=== PATIENT | female | born 1995 | race Caucasian/White ===

== ENCOUNTER 2016-10-09 08:18 | Inpatient (IN) | payer MEDICAID, OTHER ==
[2016-10-09] VITALS (19 sets, daily range): BP systolic 110–129; BP diastolic 58–74; PULSE 90–110; RESP 12–22; TEMP 98.7; Ht 162.6 cm; Wt 75.0 kg
[~2016-10-09] VITALS: Ht 162.6 cm; Wt 75.0 kg
[~2016-10-09 08:18] MED LIST: BUPIVACAINE 0.25%/EPI (SDV) 30 ML INJ INJ ONE; CIPR500T4 PO; DICY20TA59 PO; HYDR-902 PO; LIDOCAINE 1% (MPF) 30 ML INJ INJ ONE; ONDA4TAB14 PO
[2016-10-09] MEDS ORDERED: ONDANSETRON 4 MG INJ IV STA (08:30)
[2016-10-09] MEDS ORDERED: morphine 4 MG/ML VIAL IV STA (08:30)
[2016-10-09] MEDS ORDERED: SOD CHLORIDE 0.9% 1,000 ML IV STA (08:30)
--- NOTE | 2016-10-09 09:08 | RADRPT ---
PROCEDURE: US Abdomen (right upper quadrant). CLINICAL INDICATION: Abdominal pain. TECHNIQUE: Multiple real-time longitudinal and transverse images of the right upper quadrant of th e abdomen were acquired utilizing a curved array transducer. Images were reviewed on a high-resoluti on PACS workstation. COMPARISON: Ultrasound from 04/14/2016 FINDINGS: The liver is normal in size and echogenicity without focal mass or intrahepatic biliary dilatation. Multiple stones are seen within the gallbladder measuring up to 1.7 cm in diameter. There is no def inite pericholecystic fluid or gallbladder wall thickening demonstrated. The beef ribber reports a p ositive sonographic Wagner's sign. No intra or extrahepatic biliary dilatation is seen. The commo n bile duct measures 2.6 mm in maximal dimension. The visualized portions of the pancreas are unrem arkable with obscuration of the tail of the pancreas. No free fluid is identified. The right kidney measures 11.0 cm in length. There is normal echogenicity within the right kidney. There is no perinephric fluid collection. No hydronephrosis, mass, or calculus is seen. IMPRESSION: Cholelithiasis with reportedly positive sonographic Wagner's sign and no additional sonographic evid ence of acute inflammation demonstrated. The findings are equivocal for acute calculus cholecystiti s. If there is further concern, consider HIDA scan. RPTAT: EE .Benji Vogt MD, MD Date Time Electronically viewed and signed by .Benji Vogt MD, MD on 10/09/2016 09:08 .A/
--- NOTE | 2016-10-09 09:10 | ERD ---
ER Documentation Chief Complaint Date/Time DATE: 10/09/16 TIME: 09:05 Chief Complaint APIGASTRIC PAIN,NAUSEA STARTED 3AM HPI This is a 21-year-old female, with relevant medical history of gallstones, presenting to the emergency department for epigastric pain and nausea 2 days. Patient states pain started yesterday and has worsened today. Patient has a history of gallstones and states this pain feels similar to when she had gallstones. No vomiting or diarrhea. No lower abdominal pain. No dysuria or hematuria. No urinary frequency or urgency. No black or tarry stools. No constipation. Patient states she does feel short of breath at times. No chest pain or difficulty breathing. No heart palpitations. ROS All systems reviewed and are negative except as per history of present illness. Medications Home Meds Active Scripts Ondansetron (Ondansetron Odt) 4 Mg Tab.rapdis, 4 MG PO Q6H Y for NAUSEA AND/OR VOMITING, #10 TAB Prov:SHAJI NERI S. 06/27/16 Hydrocodone/Acetaminophen ([place] 10-325 Tablet) 1 Each Tablet, 1 TAB PO Q6H Y for PAIN, #20 TAB Prov:SHAJI NERI S. 06/27/16 Ciprofloxacin Hcl* (Ciprofloxacin Hcl*) 500 Mg Tablet, 500 MG PO BID for 7 Days , TAB Prov:SRI COTTOSTMICHAELS A. DO 04/14/16 Hydrocodone/Acetaminophen ([place] 10-325 Tablet) 1 Each Tablet, 1 TAB PO Q6H Y for PAIN, #20 TAB Prov:SRI COTTOSTMICHAELS A. DO 04/14/16 Dicyclomine Hcl* (Bentyl*) 20 Mg Tablet, 20 MG PO QID, #60 TAB Prov:SRI COTTOSTOLOS A. DO 04/14/16 Allergies Allergies: Coded Allergies: No Known Allergies (Unverified Allergy, Unknown, 04/14/16) PMhx/Soc History of Surgery: Yes ( ) Anesthesia Reaction: No Hx Neurological Disorder: No Hx Respiratory Disorders: No Hx Cardiac Disorders: No Hx Psychiatric Problems: No Hx Miscellaneous Medical Probl: Yes (gallstones dx'd 06/2015) Hx Alcohol Use: No Hx Substance Use: No Hx Tobacco Use: No Physical Exam Vitals Vital Signs Date Time Temp Pulse Resp B/P Pulse Ox O2 Delivery O2 Flow Rate FiO2 10/09/16 11:28 98.7 97 20 120/70 100 Room Air 10/09/16 10:37 99.2 92 20 100/70 100 Room Air 10/09/16 08:20 98.8 88 18 129/64 98 Physical Exam Const: Alert, nontoxic-appearing Head: Atraumatic Eyes: Normal Conjunctiva ENT: Normal External Ears, Nose and Mouth. Neck: Full range of motion..~ No meningismus. Resp: Clear to auscultation bilaterally. No wheezing, rhonchi or crackles. Cardio: Regular rate and rhythm, no murmurs Abd: Soft, non distended. Normal bowel sounds, generalized tenderness to palpation. Skin: No petechiae or rashes Back: No midline or flank tenderness Ext: No cyanosis, or edema Neur: Awake and alert Psych: Normal Mood and Affect Result Diagram: 10/09/16 0935 10/09/16 0935 Results 24 hrs Laboratory Tests Test 10/09/16 09:15 10/09/16 09:35 Bedside Urine pH (LAB) 7.0 Bedside Urine Protein (LAB) 1+ Bedside Urine Glucose (UA) Negative Bedside Urine Ketones (LAB) Negative Bedside Urine Blood Trace-intact Bedside Urine Nitrite (LAB) Negative Bedside Urine Leukocyte Esterase (L Negative White Blood Count 16.110^3/ul Red Blood Count 4.5610^6/ul Hemoglobin 13.0g/dl Hematocrit 39.9% Mean Corpuscular Volume 87.5fl Mean Corpuscular Hemoglobin 28.5pg Mean Corpuscular Hemoglobin Concent 32.6g/dl Red Cell Distribution Width 13.4% Platelet Count 34743^3/UL Mean Platelet Volume 9.5fl Neutrophils % 87.3% Lymphocytes % 6.8% Monocytes % 5.2% Eosinophils % 0.1% Basophils % 0.3% Nucleated Red Blood Cells % 0.0/100WBC Neutrophils # 14.010^3/ul Lymphocytes # 1.110^3/ul Monocytes # 0.810^3/ul Eosinophils # 0.010^3/ul Basophils # 0.110^3/ul Nucleated Red Blood Cells # 0.010^3/ul Sodium Level 141mmol/L Potassium Level 3.4mmol/L Chloride Level 104mmol/L Carbon Dioxide Level 27mmol/L Anion Gap 13 Blood Urea Nitrogen 14mg/dl Creatinine 0.57mg/dl Glucose Level 109mg/dl Calcium Level 8.5mg/dl Total Bilirubin 0.3mg/dl Direct Bilirubin 0.00mg/dl Indirect Bilirubin 0.3mg/dl Aspartate Amino Transf (AST/SGOT) 26IU/L Alanine Aminotransferase (ALT/SGPT) 29IU/L Alkaline Phosphatase 91IU/L Troponin I < 0.012ng/ml Total Protein 7.5g/dl Albumin 4.2g/dl Globulin 3.30g/dl Albumin/Globulin Ratio 1.27 Lipase 49U/L Current Medications Medications (Trade) Dose Ordered Sig/Shereen Route PRN Reason Start Time Stop Time Status Last Admin Dose Admin Sodium Chloride (NS) 1,000 ml @ 1,000 mls/hr Q1H STAT IV 10/09/16 08:30 10/09/16 10:53 DC 10/09/16 09:11 Morphine Sulfate (morphine) 4 mg ONCE STAT IV 10/09/16 08:30 10/09/16 08:33 DC 10/09/16 09:10 Ondansetron HCl 4 mg 4 mg ONCE STAT IV 10/09/16 08:30 10/09/16 08:33 DC 10/09/16 09:10 Ampicillin Sodium/ Sulbactam Sodium (Unasyn 3gm/NS (Pmx)) 100 ml @ 100 mls/hr ONCE ONCE IVPB 10/09/16 10:30 10/09/16 11:29 DC 10/09/16 10:32 Ondansetron HCl (Zofran Inj) 4 mg BRIDGE ORDER PRN IV NAUSEA AND/OR VOMITING 10/09/16 11:00 10/10/16 10:59 Acetaminophen (Tylenol Tab) 650 mg ER BRIDGE PRN PO MILD PAIN/FEVER 10/09/16 11:00 10/10/16 10:59 Procedures/MDM ED COURSE: The patient was stable throughout ED course. I kept the patient and/or family informed of laboratory and diagnostic imaging results throughout the ED course. IV access obtained per staff physician. Patient given morphine, Zofran and Pepcid while in the ED. Laboratory CBC shows WBC 16.1 CMP no significant electrolyte imbalance Lipase 49 Urine dip 1+ protein, trace blood Urine negative troponin <0.012 Imaging Patient: ROBB CAMARA: 1995 Age: 21 Sex: F MR #: [id number] DOS: 10/09/16829 Ordering MD: NASEEM CURTIS NP Location: [facility] Room/Bed: PROCEDURE: XR Chest. CLINICAL INDICATION: Abdominal pain. TECHNIQUE: Single frontal chest x-ray. COMPARISON: 07/23/2015 FINDINGS: The lungs are clear. No focal opacification is seen. No pneumothorax or pleural effusion is seen. The cardiomediastinal silhouette is unremarkable. The osseous structures are grossly unremarkable. IMPRESSION: No evidence of acute cardiopulmonary disease. Patient: ROBB CAMARA : 1995 Age: 21 Sex: F MR #: [id number] DOS: 10/09/1630 Ordering MD: NASEEM CURTIS NP Location: [facility] Room/Bed: PROCEDURE: US Abdomen (right upper quadrant). CLINICAL INDICATION: Abdominal pain. TECHNIQUE: Multiple real-time longitudinal and transverse images of the right upper quadrant of the abdomen were acquired utilizing a curved array transducer. Images were reviewed on a high-resolution PACS workstation. COMPARISON: Ultrasound from 04/14/2016 FINDINGS: The liver is normal in size and echogenicity without focal mass or intrahepatic biliary dilatation. Multiple stones are seen within the gallbladder measuring up to 1.7 cm in diameter. There is no definite pericholecystic fluid or gallbladder wall thickening demonstrated. The highway technician reports a positive sonographic Wagner's sign. No intra or extrahepatic biliary dilatation is seen. The common bile duct measures 2.6 mm in maximal dimension. The visualized portions of the pancreas are unremarkable with obscuration of the tail of the pancreas. No free fluid is identified. The right kidney measures 11.0 cm in length. There is normal echogenicity within the right kidney. There is no perinephric fluid collection. No hydronephrosis, mass, or calculus is seen. IMPRESSION: Cholelithiasis with reportedly positive sonographic Wagner's sign and no additional sonographic evidence of acute inflammation demonstrated. The findings are equivocal for acute calculus cholecystitis. If there is further concern, consider HIDA scan. MDM:21-year-old female presents emergency department for epigastric pain and nausea 2 days. No vomiting or diarrhea. No constipation. No fevers or chills. Remains afebrile throughout ED visit. Patient given morphine, Zofran and Pepcid. US gallbladder reviewed by radiologist as acute cholecystitis. Discussed findings with Dr. Jordan and patient will be transferred to higher level of care. Patient remains calm and comfortable. Departure Diagnosis: Primary Impression: Cholecystitis Condition: NASEEM Jerry NP Oct 09, 2016 09:10
--- NOTE | 2016-10-09 09:15 | RADRPT ---
PROCEDURE: XR Chest. CLINICAL INDICATION: Abdominal pain. TECHNIQUE: Single frontal chest x-ray. COMPARISON: 07/23/2015 FINDINGS: The lungs are clear. No focal opacification is seen. No pneumothorax or pleural effusion is seen. The cardiomediastinal silhouette is unremarkable. The osseous structures are grossly unremarkable. IMPRESSION: No evidence of acute cardiopulmonary disease. RPTAT: EE .Benji Vogt MD, MD Date Time Electronically viewed and signed by .Benji Vogt MD, on 10/09/2016 09:14 .A/
[2016-10-09 09:16] LABS: URINE BLOOD (Dip) POC Trace-intact (NEGATIVE)
[2016-10-09 09:41] LABS: ADD SCAN DIFF NO
[2016-10-09 09:43] LABS: BASOPHIL # 0.1 10^3/ul (0.0-0.1); BASOPHILS % 0.3 % (0.0-2.0); EOSINOPHILS % 0.1 % (0.0-7.0); HEMATOCRIT 39.9 % (37.0-47.0); LYMPHOCYTES # 1.1 10^3/ul (0.8-2.9); LYMPHOCYTES % 6.8 % (18.0-55.0); MEAN CORPUSCULAR HEMOGLOBIN 28.5 pg (29.0-33.0); MEAN CORPUSCULAR HGB CONC 32.6 g/dl (32.0-37.0); MEAN CORPUSCULAR VOLUME 87.5 fl (72.0-104.0); MEAN PLATELET VOLUME 9.5 fl (7.4-10.4); MONOCYTE # 0.8 10^3/ul (0.3-0.9); MONOCYTES % 5.2 % (0.0-13.0); NEUTROPHILS % 87.3 % (30.0-74.0); PLATELET COUNT 231 10^3/UL (140-415); RED BLOOD COUNT 4.56 10^6/ul (4.20-5.40); RED CELL DISTRIBUTION WIDTH 13.4 % (11.5-14.5); WHITE BLOOD COUNT 16.1 10^3/ul (4.8-10.8)
[2016-10-09] MEDS ORDERED: AMPICILLIN/SULB 3 GM/NS (PMX) 100 ML IVPB ONE (10:30)
[2016-10-09 10:41] LABS: ALBUMIN 4.2 g/dl (3.3-4.9)
[2016-10-09 10:42] LABS: POTASSIUM 3.4 mmol/L (3.5-5.1)
[2016-10-09 10:43] LABS: CREATININE 0.57 mg/dl (0.44-1.00)
[2016-10-09 10:44] LABS: ALBUMIN/GLOBULIN RATIO 1.27; BILIRUBIN,INDIRECT 0.3 mg/dl (0-1.1); BILIRUBIN,TOTAL 0.3 mg/dl (0.2-1.3); CALCIUM 8.5 mg/dl (8.4-10.2); TOTAL PROTEIN 7.5 g/dl (6.1-8.1)
--- NOTE | 2016-10-09 10:53 | QN ---
Documentation Comment My independent concise history is right upper quadrant abdominal pain. My pertinent physical exam findings are right upper quadrant pain with palpation with guarding. The plan is admission to Dr. Terrazas from the panel team as the patient has [employer] insurance. I also spoke with Dr. Lyons who is a surgeon on-call who will see the patient in consultation. The patient will be kept n.p.o. Unasyn was given empirically.. ANTONY BRITO MD Oct 09, 2016 10:53
[2016-10-09] MEDS ORDERED: ACETAMINOPHEN 325 MG TAB PO PRN ×3 (11:00→19:00)
[2016-10-09] MEDS ORDERED: ONDANSETRON 4 MG INJ IV PRN ×3 (11:00→19:00)
[2016-10-09] MEDS ORDERED: SOD CHLORIDE 0.9% 1,000 ML IV SCH (12:16)
[2016-10-09] MEDS ORDERED: HYDROCODONE/APAP (5/325) TAB PO PRN ×2 (12:30→19:00)
[2016-10-09] MEDS ORDERED: DOCUSATE SODIUM 100 MG CAP PO PRN (12:30)
[2016-10-09] MEDS ORDERED: MAGNESIUM HYDROXIDE 30ML CUP PO PRN (12:30)
[2016-10-09] MEDS ORDERED: ALBUTEROL/IPRATROPIUM (NEB) 3 ML AMP HHN PRN (12:30)
[2016-10-09] MEDS ORDERED: morphine 2 MG INJ IV PRN ×2 (12:30→19:00)
[2016-10-09] MEDS ORDERED: NA PHOSPHATE/BIPHOS 133 ML ENEMA PR PRN (12:30)
[2016-10-09] MEDS ORDERED: LORAZEPAM 2 MG INJ IV PRN (12:30)
[2016-10-09] MEDS ORDERED: NITROGLYCERIN (SL) 0.4 MG TAB SL PRN (12:30)
[2016-10-09] MEDS ORDERED: hydrALAzine 20 MG INJ IV PRN (12:30)
[2016-10-09] MEDS ORDERED: NACL 0.9% 3 ML SYG IV SCH (12:30)
--- NOTE | 2016-10-09 13:25 | HP ---
DATE OF ADMISSION: 10/09/2016 21-year-old female. CHIEF COMPLAINT: Abdominal pain. HISTORY OF PRESENT ILLNESS: A 21-year-old female with a prior history of gallstones. She has been having abdominal pain that began earlier this morning around 3:00 a.m. She also had nausea and vomit ing symptoms, nonbilious, nonbloody, some subjective fevers at home, also some mild shortness of micky ath. She says she has had off and on pain for the last 2 years though it became worse this morning. No diarrhea or constipation. No dysuria, hematuria or frequency. No upper or lower GI bleeding. No significant chest pain. When she came into the ER today, she had a gallbladder ultrasound that showed cholelithiasis with signs of acute calculus cholecystitis and the general surgery team was ca lled by the ER staff to come evaluate the patient, which is still pending. PAST MEDICAL HISTORY: As stated above. ALLERGIES: NO KNOWN DRUG ALLERGIES. MEDICATIONS AT HOME: 1. Cipro 500 mg b.i.d. 2. Bentyl 20 mg q.i.d. 3. [place] 10/325 q.6h. p.r.n. 4. Zofran 4 mg p.o. q.6h. p.r.n. PAST SURGICAL HISTORY: in the past. SOCIAL HISTORY: Negative for smoking, drinking, or IV drug abuse. FAMILY HISTORY: Noncontributory. PHYSICAL EXAMINATION: VITAL SIGNS: T-max 99.2, pulse of 88 to 97, respirations 18 to 20, blood pressure 100-129 systolic over 70 to 64 diastolic, saturating at 100% on room air. GENERAL: The patient is lying in bed, answering questions, in mild distress but alert. HEENT: Pupils equal, round, react to light. Extraocular muscles intact. NECK: Supple, no thyromegaly. LUNGS: Clear to auscultation bilaterally. CARDIOVASCULAR: S1, S2 heard. No rubs or gallops. ABDOMEN: Mild tenderness to palpation right upper quadrant area, but otherwise soft, nondistended. Normal bowel sounds. No rebound or guarding. MUSCULOSKELETAL: No lower extremity edema bilaterally. NEUROLOGIC: No focal deficits. LABORATORIES: WBC 16.1, hemoglobin 13, hematocrit 39.9, platelets 231. Comprehensive metabolic christianson el is normal except potassium 3.4. Troponin is negative x1. Lipase 49. We mentioned the gallbladd er ultrasound results above. IMAGING: Chest x-ray showed no acute cardiopulmonary disease. ASSESSMENT AND PLAN: A 21-year-old female coming in with abdominal pain, nausea, vomiting, signs of acute cholecystitis. 1. Abdominal pain, nausea, vomiting secondary to acute cholecystitis. Admit the patient to med/[place] g floor, keep her n.p.o., give her IV fluids, antiemetic medicines, get general surgery consult. Th e patient will most likely benefit from a laparoscopic cholecystectomy. Also check labs, TSH, A1c, lipid panel and put her on IV fluids as well. Put her on antibiotics as well, given leukocytosis. 2. Gastrointestinal prophylaxis, PPI. 3. Deep venous thrombosis prophylaxis, heparin subQ. Dictated By: SANTOSH MAHONEY/GABRIELLA Conf#: [id number] DID#: [id number]
[2016-10-09 14:18] LABS: INR 0.99; PARTIAL THROMBOPLASTIN TIME 34.9 Sec (25.0-35.0); PROTIME 13.1 Sec (12.2-14.2)
[2016-10-09] MEDS: PIPER-TAZO 3.375 GM IV (PMX) 100 ML IVPB SCH ×2 (17:23→23:55)
[2016-10-09] MEDS ORDERED: LIDOCAINE 1% (STERILE-PAK) 30 ML INJ ONE (18:44)
[2016-10-09] MEDS ORDERED: BUPIVACAINE 0.25%/EPI (SDV) 30 ML INJ ONE (18:44)
[2016-10-09] MEDS: D5W-0.45 NACL + KCL 20 MEQ 1,000 ML IV SCH (18:45)
[2016-10-09] MEDS ORDERED: PROPOFOL 20 ML ONE (19:07)
[2016-10-09] MEDS ORDERED: SUCCINYLCHOLINE CHLORIDE 100 MG/5 ML SYG IV ONE (19:07)
[2016-10-09] MEDS ORDERED: ROCURONIUM 50 MG INJ ONE (19:07)
[2016-10-09] MEDS ORDERED: MIDAZOLAM 1 MG/ML 2 ML INJ ONE (19:08)
[2016-10-09] MEDS ORDERED: ONDANSETRON 4 MG INJ ONE (19:22)
[2016-10-09] MEDS ORDERED: FAMOTIDINE 20 MG INJ ONE (19:22)
[2016-10-09] MEDS ORDERED: DEXAMETHASONE 4 MG/ML 1 ML INJ ONE (19:23)
[2016-10-09] MEDS ORDERED: ROPIVACAINE 0.5 % 30 ML VIAL ONE (19:36)
--- NOTE | 2016-10-09 19:37 | CONS ---
DATE OF ADMISSION: 10/09/2016 DATE OF CONSULTATION: 10/09/2016 HISTORY OF PRESENT ILLNESS: Ms. Thurman is a 21-year-old female with recurrent biliary colic. She has had approximately 6 episodes of biliary colic ____ and has been hospitalized multiple times. L ast night, she developed epigastric and right upper quadrant pain with nausea and vomiting. She pre sented to the ER, where workup was consistent with acute cholecystitis. I was called for consultati on. PAST MEDICAL HISTORY: Noncontributory. ALLERGIES: NONE. MEDICATIONS: 1. Cipro. 2. Bentyl. 3. [place]. 4. Zofran. PAST SURGICAL HISTORY: . SOCIAL HISTORY: Denies smoking, drug use or drinking. PHYSICAL EXAMINATION: GENERAL: She is a well-nourished, well-developed female in no apparent distress. VITAL SIGNS: She is currently afebrile. Vital signs stable. CHEST: Clear to auscultation bilaterally. HEART: Regular rhythm. ABDOMEN: Soft, nondistended with some right upper quadrant tenderness. LABORATORY DATA: White count of 16, hematocrit of 40, platelets of 231. Sodium 141, potassium 3.4, chloride 104, CO2 27, BUN and creatinine 14 and 0.6 and glucose of 109. Her LFTs are within normal limits. IMAGING: Her ultrasound revealed cholelithiasis with reportedly positive sonographic Wagner sign bu t no pericholecystic fluid or gallbladder wall thickening. ASSESSMENT AND PLAN: Ms. Thurman is a 21-year-old female with likely acute cholecystitis or possib le biliary colic. I discussed proceeding with surgery on this admission versus outpatient. The pat ient wished to proceed, and we discussed laparoscopic, possible open cholecystectomy, possible chola ngiogram. All benefits, risks, alternatives were discussed in detail, all questions answered. The patient elects to proceed. Dictated By: ALEJANDRINA MYERS/GABRIELLA Conf#: [id number] DID#: [id number]
[2016-10-09] MEDS ORDERED: GLYCOPYRROLATE 0.4 MG INJ ONE (19:42)
[2016-10-09] MEDS ORDERED: NEOSTIGMINE 3 MG/3 ML SYRINGE ONE (19:42)
[2016-10-09] MEDS ORDERED: NALOXONE (0.4 MG/ML) INJ ONE (19:56)
[2016-10-09] MEDS ORDERED: PROCHLORPERAZINE 10 MG INJ IV PRN (20:00)
[2016-10-09] MEDS ORDERED: MEPERIDINE 25 MG INJ IV PRN (20:00)
[2016-10-09] MEDS ORDERED: HYDROmorphONE (0.2 MG/ML) 10ML SYG IV PRN ×2 (20:00)
--- NOTE | 2016-10-09 20:38 | OPR ---
DATE OF OPERATION: 10/09/2016 PREOPERATIVE DIAGNOSIS: Cholecystitis, acute. POSTOPERATIVE DIAGNOSIS: Biliary colic. PROCEDURE: Laparoscopic cholecystectomy. SURGEON: Alejandrina Lyons MD DINING ROOM CAPTAIN: None. ANESTHESIA: General endotracheal. ANESTHESIOLOGIST: MD Kimberly ESTIMATED BLOOD LOSS: Minimal. COMPLICATIONS: None. SPECIMENS: Gallbladder with stones. FINDINGS: Distended gallbladder. INDICATIONS: Ms. Thurman is a 21-year-old female who has had multiple recurrent attacks of biliary colic. She presented to the ER today with right upper quadrant tenderness, a white count of 16 and ultrasound consistent with acute cholecystitis. I discussed proceeding with a laparoscopic, possible open cholecystectomy on this admission versus an outpatient. The patient wished to proceed with surgery on this admission. I discussed laparoscopic, possible open cholecystectomy, possible cholangiogram with her and her . All benefits, risks, alternatives were discussed in detail. All questions answered. The patient elected to proceed. DESCRIPTION OF PROCEDURE: The patient was brought to the operating room and placed supine on the table. After preoperative antibiotics and SCDs were placed , the patient was intubated and the abdomen was prepped and draped in sterile fashion. All incisions were infiltrated with 1% lidocaine with epinephrine and 0.5% Marcaine prior to incision. An 11 mm incision was made in the umbilicus using a 5 mm laparoscope-containing trocar. The abdomen was entered under direct vision and insufflated 50 mmHg of CO2. The following trocars were then placed under direct vision: Right lower quadrant 5 mm, right upper quadrant 5 mm and subxiphoid 5 mm. The 5 mm umbilical trocar was exchanged for an 11 mm under direct vision. I then found the gallbladder was distended but was able to be grasped with the fundus and retracted over the liver. There were some adhesions of omentum to the gallbladder which were taken down and I was thus able to expose Caesar's pouch. Caesar's pouch was grasped and retracted laterally. I scored the peritoneum underneath Caesar pouch medially and laterally and I was able to dissect out and skeletonize the cystic duct and artery. I then had my critical view of safety where I saw my liver edge, the duct and the artery with no intervening structures. The duct and artery were both clipped twice proximally and once distally individually and then divided. The gallbladder was then removed from the gallbladder fossa with electrocautery , placed in an EndoCatch bag and removed from the 12 mm trocar site. I irrigated out the right upper quadrant and gallbladder fossa. There was some slight oozing from the gallbladder fossa, which was controlled with cautery. At this point, I visualized my gallbladder fossa was hemostatic. I then desufflated the abdomen and removed all trocars. The fascia of the 12 mm trocar site was closed with 0 Vicryl. Skin incisions were closed with 4-0 Monocryl, Mastisol, Steri-Strips, 2 x 2 gauze and Tegaderm was placed over the umbilical incision only. The patient tolerated procedure well, was extubated in the OR and transferred to recovery room in stable condition. Dictated By: ALEJANDRINA MYERS/GABRIELLA Conf#: [id number] DID#: [id number] MTDD
[2016-10-09] MEDS ORDERED: HEPARIN 5,000 UNIT/0.5 ML SYG SC SCH (21:00)
[2016-10-09] MEDS: KETOROLAC 30 MG INJ IV SCH (23:55)
[2016-10-10] VITALS: BP 112/61; RESP 16
[2016-10-10] MEDS ORDERED: AMPICILLIN/SULB 3 GM/NS (PMX) 100 ML IVPB SCH
[2016-10-10 01:01] VITALS: BP 107/59; RESP 16
[2016-10-10] MEDS: PIPER-TAZO 3.375 GM IV (PMX) 100 ML IVPB SCH ×2 (05:43→11:56)
[2016-10-10] MEDS: D5W-0.45 NACL + KCL 20 MEQ 1,000 ML IV SCH ×2 (05:43→14:45)
[2016-10-10] MEDS: KETOROLAC 30 MG INJ IV SCH ×2 (05:44→11:55)
[2016-10-10 05:45] LABS: CHOL/HDL RATIO 2.4 RATIO
[2016-10-10] MEDS ORDERED: PANTOPRAZOLE 40 MG INJ IV SCH (06:00)
[2016-10-10 06:15] LABS: THYROID STIMULATING HORMONE 0.464 MIU/L (0.465-4.680)
[2016-10-10 06:53] LABS: ADD SCAN DIFF NO; BASOPHILS % 0.1 % (0.0-2.0); HEMOGLOBIN 12.2 g/dl (12.0-16.0); LYMPHOCYTES # 1.1 10^3/ul (0.8-2.9); LYMPHOCYTES % 9.4 % (18.0-55.0); MEAN CORPUSCULAR HEMOGLOBIN 28.7 pg (29.0-33.0); MEAN CORPUSCULAR VOLUME 87.1 fl (72.0-104.0); MEAN PLATELET VOLUME 10.9 fl (7.4-10.4); MONOCYTE # 0.4 10^3/ul (0.3-0.9); MONOCYTES % 3.1 % (0.0-13.0); NEUTROPHIL # 10.2 10^3/ul (1.6-7.5); NEUTROPHILS % 87.1 % (30.0-74.0); PLATELET COUNT 250 10^3/UL (140-415); RED BLOOD COUNT 4.25 10^6/ul (4.20-5.40); RED CELL DISTRIBUTION WIDTH 13.5 % (11.5-14.5); WHITE BLOOD COUNT 11.8 10^3/ul (4.8-10.8)
[2016-10-10] MEDS ORDERED: ENOXAPARIN 40 MG/0.4 ML SYG SC SCH ×3 (07:00→09:00)
[2016-10-10 07:01] LABS: POTASSIUM 3.8 mmol/L (3.5-5.1)
[2016-10-10 07:04] LABS: CREATININE 0.49 mg/dl (0.44-1.00)
[2016-10-10 07:05] LABS: CALCIUM 8.4 mg/dl (8.4-10.2); PHOSPHORUS 1.9 mg/dl (2.5-4.9)
[2016-10-10 08:00] VITALS: BP 107/57; RESP 18
--- NOTE | 2016-10-10 11:18 | PN ---
Date/Time of Note Date/Time of Note DATE: 10/10/16 TIME: 11:15 Assessment/Plan VTE Prophylaxis VTE Prophylaxis Intervention: ambulation Lines/Catheters IV [facility] Peripheral IV Urinary Cath still in place: No Assessment/Plan Assessment/Plan 1. Acute cholecystitis s/p lap fidelina 10/09/16 2. Hypophosphatemia PLAN: continue routine post op care d/c once cleared by surgery replace phos. Subjective 24 Hr Interval Summary Free Text/Dictation feels better Constitutional: no complaints Exam/Review of Systems Vital Signs Vitals Vital Signs Date Time Temp Pulse Resp B/P Pulse Ox O2 Delivery O2 Flow Rate FiO2 10/10/16 08:00 98.9 101 18 107/57 98 10/09/16 21:00 Room Air Intake and Output 10/09/16 10/09/16 10/10/16 15:00 23:00 07:00 Intake Total 1100 ml 600 ml 920 ml Output Total 20 ml 1000 ml Balance 1100 ml 580 ml -80 ml Exam Constitutional: alert, oriented Head: normocephalic Eyes: PERRL ENMT: mucosa pink and moist Respiratory: clear to auscultation Cardiovascular: regular rate and rhythm Gastrointestinal: bowel sounds, soft Extremities: No edema Neurological: nl mental status Results Result Diagram: 10/10/16 0500 10/10/16 0500 Results 24 hrs Laboratory Tests Test 10/09/16 13:45 10/10/16 04:44 10/10/16 05:00 Prothrombin Time 13.1 Prothrombin Time Ratio 1.0 INR International Normalized Ratio 0.99 Activated Partial Thromboplast Time 34.9 Free Thyroxine 1.11 Hemoglobin A1c 5.0 Triglycerides Level 52 Cholesterol Level 147 LDL Cholesterol, Calculated 77 HDL Cholesterol 60 Cholesterol/HDL Ratio 2.4 Thyroid Stimulating Hormone (TSH) 0.464 L White Blood Count 11.8 #H Red Blood Count 4.25 Hemoglobin 12.2 Hematocrit 37.0 Mean Corpuscular Volume 87.1 Mean Corpuscular Hemoglobin 28.7 L Mean Corpuscular Hemoglobin Concent 33.0 Red Cell Distribution Width 13.5 Platelet Count 250 Mean Platelet Volume 10.9 H Neutrophils % 87.1 H Lymphocytes % 9.4 L Monocytes % 3.1 Eosinophils % 0.0 Basophils % 0.1 Nucleated Red Blood Cells % 0.0 Neutrophils # 10.2 H Lymphocytes # 1.1 Monocytes # 0.4 Eosinophils # 0.0 Basophils # 0.0 Nucleated Red Blood Cells # 0.0 Sodium Level 137 Potassium Level 3.8 Chloride Level 108 Carbon Dioxide Level 23 Anion Gap 10 Blood Urea Nitrogen 6 L Creatinine 0.49 Glucose Level 142 Calcium Level 8.4 Phosphorus Level 1.9 L Magnesium Level 2.0 Medications Medications Current Medications Docusate Sodium (Colace) 100 mg Q12H PRN PO CONSTIPATION; Start 10/09/16 at 12: 30 Magnesium Hydroxide (Milk Of Mag) 30 ml DAILY PRN PO CONSTIPATION; Start at 12:30 Sodium Biphosphate/ Sodium Phosphate (Fleet Enema) 133 ml DAILY PRN OK CONSTIPATION; Start 10/09/16 at 12:30 Pantoprazole (Protonix Iv) 40 mg DAILY@06 IV Last administered on 10/10/16 05: 44; Admin Dose 40 MG; Start 10/10/16 at 06:00 Lorazepam (Ativan) 0.5 mg Q6H PRN IV ANXIETY; Start 10/09/16 at 12:30 Hydralazine HCl (Apresoline) 10 mg Q6H PRN IV ELEVATED BLOOD PRESSURE; Start at 12:30 Nitroglycerin 1 tab 1 tab Q5M PRN SL ANGINA; Start 10/09/16 at 12:30 Piperacillin Sod/ Tazobactam Sod (Zosyn 3.375gm/ 100 ml (Pmx)) 100 ml @ 200 mls /hr Q6 IVPB Last administered on 10/10/16 05:43; Admin Dose 200 MLS/HR; Start 10/09/16 at 18:00 Ondansetron HCl (Zofran Inj) 4 mg Q6H PRN IV NAUSEA AND/OR VOMITING; Start 10/09 at 19:00 Ketorolac Tromethamine (Toradol) 15 mg Q6 IV Last administered on 10/10/16 05: 44; Admin Dose 15 MG; Start 10/10/16 at 00:00; Stop 10/11/16 at 18:01 Morphine Sulfate (morphine) 2 mg Q2H PRN IV BREAKTHROUGH PAIN; Start 10/09/16 at 19:00 Acetaminophen (Tylenol Tab) 650 mg Q6H PRN PO PAIN AND OR ELEVATED TEMP; Start 10/09/16 at 19:00 Acetaminophen/ Hydrocodone Bitart 1 tab 1 tab Q6H PRN PO PAIN LEVEL 6-10; Start 10/09/16 at 19:00 Potassium Chloride/Dextrose/ Sod Cl (D5-1/2ns + KCl 20 Meq) 1,000 ml @ 100 mls/ hr Q10H IV Last administered on 10/10/16 05:43; Admin Dose 100 MLS/HR; Start at 18:45 Enoxaparin Sodium (Lovenox) 40 mg DAILY SC Last administered on 10/10/16 09:12 ; Admin Dose 40 MG; Start 10/10/16 at 09:00 RISA MERCEDES Oct 10, 2016 11:17
[2016-10-10] MEDS ORDERED: POTASSIUM PHOSPHATE 15 MM in SOD CHLORIDE 0.9% 250 ML IVPB ONE (13:00)
[2016-10-10] MEDS ORDERED: DOCU-216 PO (17:03)
[2016-10-10] MEDS ORDERED: HYDR-906 PO (17:03)
--- NOTE | 2016-10-10 17:05 | PDOCDIS ---
Discharge Instructions DIAGNOSIS Discharge Diagnosis: Acute Cholecystitis CONDITION Patient Condition: Stable HOME CARE INSTRUCTIONS: Diet Instructions: Regular ACTIVITY: Activity Restrictions: Slowly Increase Activity Rest between Activity Avoid heavy lifting Bathing Restrictions: Tub Bath FOLLOW UP/APPOINTMENTS Appointments Review your medication list with your nurse before leaving and if you need new prescriptions please let your nurse know. I may have made changes to your home medications or given you new prescriptions , please let your primary doctor know as well. Stay compliant with your medications and report any side effects to your PCP or pharmacist. Return to the ER if you have any concerns and cannot reach your doctors or call your insurance company, they usually have a nurse that can help you. SCHOOL/WORK RELEASE May return to School/Work on: Oct 17, 2016 May return to School/Work with: No Restrictions RISA MERCEDES Oct 10, 2016 17:04
--- NOTE | 2016-10-11 06:28 | DS ---
DATE OF ADMISSION: 10/09/2016 DATE OF DISCHARGE: 10/10/2016 ADMISSION DIAGNOSIS: Acute cholecystitis. DISCHARGE DIAGNOSES: 1. Acute cholecystitis status post laparoscopic cholecystectomy. 2. Hyperphosphatemia. 3. Leukocytosis secondary to cholecystitis, now resolved. CONSULTANTS ON THE CASE: Dr. Suleman Lyons PROCEDURE: Laparoscopic cholecystectomy. DISPOSITION: To home. ACTIVITIES: As tolerated. FOLLOWUP: Follow up with surgeon as needed and primary care physician as previously recommended. DISCHARGE MEDICATIONS: 1. P.o. [place] 5/325 one tab every 6 p.r.n. as needed. 2. Colace 100 p.o. b.i.d. INSTRUCTIONS: The patient is recommended to follow up back in the emergency room if symptoms recur and/or call her primary care physician for followup. Dictated By: RISA MERCEDES MD BA/NTS Conf#: [id number] DID#: [id number]
== END 2016-10-10 19:00 | disposition home or self-care (01) | DRG 419 ==
LOC: FTE 08:18 → MS1 10:50
PROVIDERS: ADMIT Hospitalist; ATTEND Hospitalist
PROC: 0FT44ZZ Resection of Gallbladder, Percutaneous Endoscopic Approach (ICD-10-PCS; principal; 2016-10-09)
DX: K80.00 Calculus of gallbladder with acute cholecystitis without obstruction (principal); E83.39 Other disorders of phosphorus metabolism
CPT/HCPCS: 36415; 71010; 76705; 80048; 80053; 80061; 81003; 83036; 83690; 83735; 84100; 84439; 84443; 84484; 85025; 85610; 85730; 88304; 93005; 96361; 96365; 96375; C9113; J0295; J0330; J0780; J1100; J1170; J1644; J1650; J1885; J2175; J2250; J2270; J2310; J2405; J2543; J2710; J2795; J3010; J3480; J7030; J7050

== ENCOUNTER 2017-05-17 09:04 | Inpatient (IN) | END 2017-05-18 17:34 | disposition home or self-care (01) | DRG 343 | DX: K35.80 Unspecified acute appendicitis (principal) ==

== ENCOUNTER 2017-06-14 12:53 | Outpatient (CLI) | payer SELFPAY ==
[~2017-06-14] VITALS: Ht 167.6 cm; Wt 80.5 kg
[~2017-06-14 12:53] MED LIST changes: -BUPIVACAINE 0.25%/EPI (SDV) 30 ML INJ INJ ONE; -CIPR500T4 PO; -DICY20TA59 PO; +DOCU-216 PO; +HYDR-3498 PO; -HYDR-902 PO; -LIDOCAINE 1% (MPF) 30 ML INJ INJ ONE; -ONDA4TAB14 PO
[2017-06-14 13:01] VITALS: BP 121/62; PULSE 95; RESP 16; Ht 167.6 cm; Wt 80.5 kg
--- NOTE | 2017-06-14 17:54 | PN ---
Date/Time of Note Date/Time of Note DATE: 06/14/17 TIME: 17:49 Assessment/Plan Assessment/Plan Assessment/Plan [facility] Progress Note Date of Service: 06/14/2017 Location of Service: [facility] at [facility] Today's Assessment & Plan: Overall stable and doing well. Abdomen remains benign. No indications of major postoperative complications or wound problems. No indication for acute surgical intervention. With above assessment, I've recommended the following for today: 1. F/u with PCP 2. F/u with us prn Thank you again for your great care of this very pleasant patient and wonderful family. If there are any questions, please feel free to call me at [phone]. Nature of presenting problem: Moderate severity Please note that, given the limited number of diagnoses or management options, the limited amount and/or complexity of data needed to be reviewed, and moderate risk of complications and/or morbidity or mortality, this qualifies as moderate complexity type of decision-making. Disclaimers: 1. Inadvertent spelling and grammatical errors are likely due to electronic health record (EHR)/dictation software used and do not reflect on the quality of delivered patient care. 2. The electronic timestamp recorded on this note does not necessarily reflect the actual date and time of the visit or the service. 3. Portions of this note may have been created through electronic templates and computer algorithms that might bring in information either from the system or from other physicians and providers. Please note that such information may or may not contain errors, the occurrence of which are outside of my control. In general (but not always) this happens either in the beginning or at the end of the note. The portion of the note that I have created are generally done in 1 continuous block of text, flanked at the beginning and at the end by " ", and entered into one field in the EHR. 4. There may be other unanticipated errors in the note that are outside of my control. I can only attest to the portions of the note that I have created. Updated Clinical Summary: A very-pleasant 21-year-old lady with comorbidity of BMI 28.4 and prior C- section, presenting with abdominal pain which is likely from acute appendicitis although I gave the patient and family a 10-20% chance that it may be from other reasons. S/p an otherwise uncomplicated laparoscopic appendectomy at [facility] 05/17/17 with findings of non-perforated appendicitis. Comorbidities: 1. Acute appendicitis. S/p an otherwise uncomplicated laparoscopic appendectomy at [facility] 05/17/17 with findings of non-perforated appendicitis. No malignancy on final path. 2. BMI 28.4 3. Status post (2014) 4. Status post laparoscopic cholecystectomy, [facility], Dr. Lyons 10/09/2016; final pathology: Mucosal cholesterolosis and no evidence of malignancy Subjective: No major events or complaints; no abd pain and not on pain medications; no n/v/d ; no sob or cp; + bowel activity; + activity Objective: Vitals: See below Exam: GENERAL: On exam, the patient was sitting in a chair and appeared to be comfortable and in no acute distress. ABDOMEN: Soft, nontender and nondistended. Incisions are clean, dry and intact without any evidence of obvious erythema, edema, discharge, or hernia. There are no peritoneal signs or guarding. SKIN: Skin appears to be pink and feels warm to touch. NEUROLOGIC: Patient is awake, alert, and follows commands appropriately. Exam/Review of Systems Vital Signs Vitals Vital Signs Date Time Temp Pulse Resp B/P Pulse Ox O2 Delivery O2 Flow Rate FiO2 06/14/17 13:01 98.4 95 16 121/62 98 Room Air FERNANDEZ NUNEZ M.D. Jun 14, 2017 17:54
== END 2017-06-14 17:00 | disposition home or self-care (01) ==
LOC: HPC 12:53
PROVIDERS: ATTEND Transplant Surgery
DX: Z09 Encounter for follow-up examination after completed treatment for conditions other than malignant neoplasm (principal); K35.80 Unspecified acute appendicitis
CPT/HCPCS: G0463

== ENCOUNTER 2018-11-22 19:47 | Emergency (ER) | payer MEDICAID ==
[~2018-11-22] VITALS: Wt 73.8 kg
[2018-11-22] MEDS ORDERED: ONDANSETRON (ODT) 4 MG TAB ODT STA (21:23)
[2018-11-22] MEDS ORDERED: LIDOCAINE/MYLANTA 40 ML BTL PO ONE (21:30)
[2018-11-22] MEDS ORDERED: RANITIDINE 150 MG TAB PO ONE (21:30)
[2018-11-22] MEDS ORDERED: RANI150T35 PO (22:21)
[2018-11-22] MEDS ORDERED: OMEP20CA16 PO (22:21)
[2018-11-23 00:14] VITALS: BP 116/68; PULSE 60; RESP 18
--- NOTE | 2018-11-23 00:50 | ERD ---
ER Documentation Chief Complaint Chief Complaint AP X'S 2 DAYS HPI 23-year-old female presenting to the emergency department complaining of midepigastric pain intermittently for the past 5 days. She reports a sharp, burning sensation which is worse with eating. Symptoms are currently moderate in severity. She denies any nausea, vomiting, diarrhea. Last menstrual cycle was 10/29/2018. She denies any other symptoms at this time.Patient is post cholecystectomy and post appendectomy. ROS All systems reviewed and are negative except as per history of present illness. Medications Home Meds Active Scripts Omeprazole* (Omeprazole*) 20 Mg Capsule.dr, 20 MG PO DAILY, #20 Prov:SHAJI TURPIN PA-C 11/22/18 Ranitidine Hcl* (Zantac*) 150 Mg Tablet, 150 MG PO BID PRN for EPIGASTRIC PAIN, #30 TAB Prov:SHAJI TURPIN PA-C 11/22/18 Allergies Allergies: Coded Allergies: No Known Allergies (Unverified Allergy, Unknown, 05/17/17) PMhx/Soc Medical and Surgical Hx: pt denies Medical Hx History of Surgery: No Anesthesia Reaction: No Hx Neurological Disorder: No Hx Respiratory Disorders: No Hx Cardiac Disorders: No Hx Psychiatric Problems: No Hx Miscellaneous Medical Probl: No Hx Alcohol Use: No Hx Substance Use: No Hx Tobacco Use: No Smoking Status: Never smoker FmHx Family History: No diabetes Physical Exam Vitals Vital Signs Date Temp Pulse Resp B/P (MAP) Pulse Ox O2 O2 Flow FiO2 Time Delivery Rate 11/23/18 98.1 60 18 116/68 99 Room Air 00:14 (84) 11/22/18 98.5 75 18 116/62 99 20:25 (80) Physical Exam Const: No acute distress Head: Atraumatic Eyes: Normal Conjunctiva ENT: Normal External Ears, Nose and Mouth. Neck: Full range of motion. No meningismus. Resp: Clear to auscultation bilaterally Cardio: Regular rate and rhythm, no murmurs Abd: Soft, mild tenderness palpation of the midepigastric region, no rebound tenderness or guarding, no McBurney's point tenderness, non distended. Normal waldemar wel sounds Skin: No petechiae or rashes Back: No midline or flank tenderness Ext: No cyanosis, or edema Neur: Awake and alert Psych: Normal Mood and Affect Result Diagram: 11/22/18213011/22/182130 Results 24 hrs Laboratory Tests Test 11/22/18 21:31 11/22/18 21:34 White Blood Count 8.3 10^3/ul Red Blood Count 4.59 10^6/ul Hemoglobin 13.2 g/dl Hematocrit 40.2 % Mean Corpuscular Volume 87.6 fl Mean Corpuscular Hemoglobin 28.8 pg Mean Corpuscular Hemoglobin Concent 32.8 g/dl Red Cell Distribution Width 12.5 % Platelet Count 282 10^3/UL Mean Platelet Volume 9.9 fl Immature Granulocytes % 0.200 % Neutrophils % 48.2 % Lymphocytes % 42.9 % Monocytes % 6.3 % Eosinophils % 1.9 % Basophils % 0.5 % Nucleated Red Blood Cells % 0.0 /100WBC Immature Granulocytes # 0.020 10^3/ul Neutrophils # 4.0 10^3/ul Lymphocytes # 3.5 10^3/ul Monocytes # 0.5 10^3/ul Eosinophils # 0.2 10^3/ul Basophils # 0.0 10^3/ul Nucleated Red Blood Cells # 0.0 10^3/ul Urine Color STRAW Urine Clarity CLEAR Urine pH 6.0 Urine Specific [place] 1.010 Urine Ketones NEGATIVE mg/dL Urine Nitrite NEGATIVE mg/dL Urine Bilirubin NEGATIVE mg/dL Urine Urobilinogen NEGATIVE mg/dL Urine Leukocyte Esterase NEGATIVE Darby/ul Urine Microscopic RBC 1 /HPF Urine Microscopic WBC 1 /HPF Urine Hemoglobin 1+ mg/dL Urine Glucose NEGATIVE mg/dL Urine Total Protein NEGATIVE mg/dl Sodium Level 142 mmol/L Potassium Level 4.0 mmol/L Chloride Level 104 mmol/L Carbon Dioxide Level 29 mmol/L Anion Gap 9 Blood Urea Nitrogen 11 mg/dl Creatinine 0.59 mg/dl Est Glomerular Filtrat Rate mL/min > 60 mL/min Glucose Level 86 mg/dl Calcium Level 9.4 mg/dl Total Bilirubin 0.5 mg/dl Direct Bilirubin 0.00 mg/dl Indirect Bilirubin 0.5 mg/dl Aspartate Amino Transf (AST/SGOT) 26 IU/L Alanine Aminotransferase (ALT/SGPT) 24 IU/L Alkaline Phosphatase 117 IU/L Total Protein 8.4 g/dl Albumin 4.7 g/dl Globulin 3.70 g/dl Albumin/Globulin Ratio 1.27 Lipase 95 U/L POC Beta HCG, Qualitative NEGATIVE Current Medications Medications Dose Sig/Shereen Start Time Status Last (Trade) Ordered Route PRN Stop Time Admin Dose Reason Admin 40 ml ONCE ONCE 11/22/18 DC 11/22/18 Miscellaneous PO 21:30 21:42 Medication 11/22/18 21:31 (Gi Cocktail (2)) Ranitidine 150 mg ONCE ONCE 11/22/18 DC 11/22/18 HCl PO 21:30 21:42 (Zantac) 11/22/18 21:31 Ondansetron 4 mg ONCE STAT 11/22/18 DC 11/22/18 HCl (Zofran ODT 21:23 21:42 Odt) 11/22/18 21:24 Procedures/MDM 23-year-old female presenting to the emergency department complaining of midepigastric pain. Ultrasound of the midepigastric and right upper quadrant region showed no significant acute abnormalities. The full report interpreted by the radiologist may be viewed below. Laboratory studies were essentially unremarkable. I suspect GERD or other nonemergent pathology. Much lower suspicion for acute surgical abdomen patient stable and appropriate for discharge and further outpatient management with prescriptions. She was in agreement with the diagnosis, plan, need for follow-up, return precautions. . [place] [id number] Radiology Main Line: [phone] DIAGNOSTIC IMAGING REPORT Patient: ROBB HAMPTON : 1995 Age: 23 Sex: F MR #: [id number] DOS: 11/22/18 0000 Ordering MD: SHAJI TURPIN PA-C Location: [facility] Room/Bed: PROCEDURE: US Abdomen (right upper quadrant). CLINICAL INDICATION: Abdominal pain. TECHNIQUE: Multiple real-time longitudinal and transverse images of the right upper quadrant of the abdomen were acquired utilizing a curved array transducer. Images were reviewed on a high-resolution PACS workstation. COMPARISON: Abdomen pelvis CT 05/17/2017. Abdomen ultrasound 10/09/2016. FINDINGS: The liver is normal in size and echogenicity without focal mass or intrahepatic biliary dilatation. The gallbladder is surgically absent. No intra or extrahepatic biliary dilatation is seen. The common bile duct measures 4 mm in maximal dimension. The visualized portions of the pancreas are unremarkable with obscuration of the tail of the pancreas. No free fluid is identified. The right kidney measures 10.1 cm in length. There is normal echogenicity within the right kidney. There is no perinephric fluid collection. No hydronephrosis, mass, or calculus is seen. IMPRESSION: 1. Prior cholecystectomy. 2. The pancreas is partially visualized. 3. Otherwise unremarkable right upper quadrant ultrasound. RPTAT: HFN .Eleni Jennings MD, MD Date Time Electronically viewed and signed by .Eleni Jennings MD, MD on 11/22/2018 23:40 .N/ CC: SHAJI TURPIN PA-C [id number] Departure Diagnosis: Primary Impression: Epigastric pain Condition: Fair Patient Instructions: Gerd (Adult) Referrals: [facility] YOU HAVE RECEIVED A MEDICAL SCREENING EXAM AND THE RESULTS INDICATE THAT YOU DO NOT HAVE A CONDITION THAT REQUIRES URGENT TREATMENT IN THE EMERGENCY DEPARTMENT. FURTHER EVALUATION AND TREATMENT OF YOUR CONDITION CAN WAIT UNTIL YOU ARE SEEN I N YOUR DOCTORS OFFICE WITHIN THE NEXT 1-2 DAYS. IT IS YOUR RESPONSIBILITY TO MAKE AN APPOINTMENT FOR FOLOW-UP CARE. IF YOU HAVE A PRIMARY DOCTOR --you should call your primary doctor and schedule an appointment IF YOU DO NOT HAVE A PRIMARY DOCTOR YOU CAN CALL OUR PHYSICIAN REFERRAL HOTLINE AT IF YOU CAN NOT AFFORD TO SEE A PHYSICIAN YOU CAN CHOSE FROM THE FOLLOWING [facility] [address] [facility]. [facility] [address] [facility] [facility] [address] [facility] [facility] [address] [facility] [address] [facility]. [facility]. [address] Additional Instructions: Call your primary care doctor TOMORROW for an appointment during the next 1-2 days.See the doctor sooner or return here if your condition worsens before your appointment time. SHAJI TURPIN PA-C November 23, 2018 00:50
== END 2018-11-23 00:16 | disposition home or self-care (01) ==
LOC: FTE 19:47
DX: R10.13 Epigastric pain (principal)
CPT/HCPCS: 36415; 76705; 80053; 81001; 81025; 83690; 85025; Z7502; Z7610